=== PATIENT | male | born 1935 | race Caucasian/White ===

== ENCOUNTER 2017-01-05 13:57 | Emergency (ER) | payer MEDICARE ==
[2017-01-05] MEDS ORDERED: Tetracaine 0.5% OPHTH SOLN/PF 4 ML BOT ONE (14:28)
== END 2017-01-05 15:40 | disposition home or self-care (01) ==
LOC: MADERS 13:57
DX: T15.01XA Foreign body in cornea, right eye, initial encounter (principal); I25.2 Old myocardial infarction; E78.5 Hyperlipidemia, unspecified; I10 Essential (primary) hypertension; I25.10 Atherosclerotic heart disease of native coronary artery without angina pectoris; Z79.899 Other long term (current) drug therapy
CPT/HCPCS: 65222

== ENCOUNTER 2018-06-07 12:42 | Emergency (ER) | payer MEDICARE ==
[2018-06-07 13:23] LABS: #Basophils 0.1 thou/uL (0.0-0.2); #Eosinphils 0.1 thou/uL (0.0-0.7); #Lymphocytes 0.8 thou/uL (1.20-3.40); #Monocytes 0.5 thou/uL (0.11-0.59); #Neutrophils 4.8 thou/uL (1.40-6.50); %Basophils 1.2 % (0.0-1.0); %Eosinophils 1.6 % (0.0-10.0); %Lymphocytes 12.7 % (21.0-51.0); %Monocytes 8.4 % (0.0-10.0); %Neutrophils 76.1 % (42.0-75.0); Mean Corpuscular Hemoglobin 32.5 pg (27.0-31.0); Mean Corpuscular Volume 98.3 fL (78.0-98.0); Mean Platelet Volume 6.7 fL (7.4-10.4); Platelet Count 193 thou/uL (130-400); RBC Distribution Width 13.1 % (11.5-14.5); Red Blood Cell (RBC) Count 4.02 mill/uL (4.70-6.10); White Blood Cell (WBC) Count 6.4 thou/uL (4.8-10.8)
[2018-06-07 13:31] LABS: PTT 32.7 SEC (22.9-36.1)
[2018-06-07 13:32] LABS: INR-International Normal Ratio 1.1
[2018-06-07 13:38] LABS: Anion Gap 15 mmol/L (10-20); BUN (Urea Nitrogen) 49 mg/dL (8.4-25.7); Calc. Creatinine Clearance 0 mL/min (70-130); Calcium 9.2 mg/dL (7.8-10.44); Carbon Dioxide 26 mmol/L (23-31); Chloride 103 mmol/L (98-107); Estimated GFR-MDRD 27; Glucose 102 mg/dL (83-110); Potassium 3.6 mmol/L (3.5-5.1); Sodium 140 mmol/L (136-145)
--- NOTE | 2018-06-07 13:42 | RAD ---
LEFT HUMERUS 2 VIEWS: HISTORY: Injury with pain. FINDINGS: Mild degenerative change at the left shoulder. The AC joint is normally aligned. No evidence of acu te fracture. IMPRESSION: No acute finding. POS: [facility]
--- NOTE | 2018-06-07 14:02 | RAD ---
LEFT SHOULDER 3 VIEWS: HISTORY: Injury and left shoulder pain. FINDINGS/IMPRESSION: There are degenerative changes in the acromioclavicular joint. No fracture, dislocation, or bony ramon truction is identified. POS: [facility]
== END 2018-06-07 14:02 | disposition home or self-care (01) ==
LOC: MADERS 12:42
DX: S40.022A Contusion of left upper arm, initial encounter (principal); N28.9 Disorder of kidney and ureter, unspecified; I25.2 Old myocardial infarction; E78.5 Hyperlipidemia, unspecified; I10 Essential (primary) hypertension; I25.10 Atherosclerotic heart disease of native coronary artery without angina pectoris; W18.30XA Fall on same level, unspecified, initial encounter
CPT/HCPCS: 36415; 80048; 85025; 85610; 85730

== ENCOUNTER 2018-10-31 20:19 | Emergency (ER) | payer MEDICARE ==
[2018-10-31 21:39] LABS: #Basophils 0.1 thou/uL (0.0-0.2); #Eosinphils 0.1 thou/uL (0.0-0.7); #Lymphocytes 0.5 thou/uL (1.20-3.40); #Monocytes 0.6 thou/uL (0.11-0.59); #Neutrophils 6.3 thou/uL (1.40-6.50); %Basophils 0.8 % (0.0-1.0); %Eosinophils 1.7 % (0.0-10.0); %Lymphocytes 6.9 % (21.0-51.0); %Monocytes 8.2 % (0.0-10.0); %Neutrophils 82.3 % (42.0-75.0); Hemoglobin 11.8 g/dL (14.0-18.0); Mean Corpuscular HGB CONC 33.3 g/dL (32.0-36.0); Mean Corpuscular Hemoglobin 32.3 pg (27.0-31.0); Mean Platelet Volume 6.6 fL (7.4-10.4); Platelet Count 157 thou/uL (130-400); RBC Distribution Width 14.2 % (11.5-14.5); Red Blood Cell (RBC) Count 3.66 mill/uL (4.70-6.10); White Blood Cell (WBC) Count 7.6 thou/uL (4.8-10.8)
[2018-10-31] MEDS ORDERED: Morphine 4 MG/ML VIAL ONE ×2 (21:45→22:59)
[2018-10-31 21:49] LABS: INR-International Normal Ratio 1.1; Prothrombin Time 14.3 SEC (12.0-14.7)
[2018-10-31 21:59] LABS: ALT (SGPT) 21 U/L (8-55); AST (SGOT) 26 U/L (5-34); Albumin 4.2 g/dL (3.4-4.8); Alkaline Phosphatase 66 U/L (40-150); Anion Gap 14 mmol/L (10-20); BUN (Urea Nitrogen) 37 mg/dL (8.4-25.7); Bilirubin, Total 0.4 mg/dL (0.2-1.2); Calc. Creatinine Clearance 0 mL/min (70-130); Calcium 8.9 mg/dL (7.8-10.44); Carbon Dioxide 28 mmol/L (23-31); Chloride 104 mmol/L (98-107); Estimated GFR-MDRD 30; Globulin 2.5 g/dL (2.4-3.5); Glucose 106 mg/dL (83-110); Potassium 3.8 mmol/L (3.5-5.1); Protein, Total 6.7 g/dL (5.8-8.1); Sodium 142 mmol/L (136-145)
--- NOTE | 2018-10-31 22:05 | CT ---
EXAM: Brain CT scan Without contrast: HISTORY: Injury from a fall COMPARISON: None FINDINGS: Atrophy and chronic white matter ischemic change. No focal mass or midline shift. No intra or extra-axial hemorrhage. Ethmoid sinus mucosal disease. The mastoids are clear. IMPRESSION: No mass or bleed or other significant acute intracranial process.
--- NOTE | 2018-10-31 22:09 | CT ---
EXAM: CT scan cervical spineWithout contrast: HISTORY: Injury from a fall COMPARISON: None FINDINGS: No evidence for acute fracture or facet dislocation. No significant malalignment. No prevertebral soft tissue swelling. Fairly significant multilevel disc osteophytosis and facet arthrosis. Motion artifact lowers the sensitivity of this study. Ethmoid sinus mucosal disease. IMPRESSION: No evidence for acute fracture or facet dislocation or other significant acute process. Cervical spondylosis. Bony demineralization. Motion artifact.
--- NOTE | 2018-10-31 22:27 | RAD ---
EXAM: Chest one view: HISTORY: Injury following a fall COMPARISON: None FINDINGS: Heart size: Within normal limits. The lungs: Clear of acute process. No evidence for pneumonia, pleural effusion, acute edema, or pneumothorax, or other significant acute process. IMPRESSION: No significant acute intrathoracic disease.
--- NOTE | 2018-10-31 22:56 | RAD ---
RIGHT FOREARM TWO VIEWS: History: Injury from a fall. FINDINGS/IMPRESSION: Degenerative changes of the wrist and elbow. Prominent vascular calcifications. No acute fracture or dislocation. POS: [facility]
--- NOTE | 2018-10-31 23:02 | RAD ---
RIGHT HUMERUS TWO VIEWS: History: Injury from a fall with pain. FINDINGS: Old deformity of the distal clavicle. Degenerative changes of the AC joint and glenohumeral joint. No acute fracture or dislocation. IMPRESSION: Degenerative changes without fracture or dislocation. POS: [facility]
--- NOTE | 2018-10-31 23:03 | RAD ---
RIGHT SHOULDER THREE VIEWS: History: Injury from a fall. FINDINGS: Considerable deformity of the distal clavicle, evidence for an old injury, possibly old AC separation . No acute fracture or dislocation. Degenerative changes of the glenohumeral and AC joints. IMPRESSION: Old deformity of the distal clavicle possibly related to an old AC separation injury. No fracture or dislocation. POS: [facility]
== END 2018-10-31 23:40 | disposition home or self-care (01) ==
LOC: MADERS 20:19
DX: S43.401A Unspecified sprain of right shoulder joint, initial encounter (principal); I25.2 Old myocardial infarction; E78.5 Hyperlipidemia, unspecified; I10 Essential (primary) hypertension; W19.XXXA Unspecified fall, initial encounter
CPT/HCPCS: 36415; 70450; 71045; 72125; 80053; 85025; 85610; 96372; J2270